=== PATIENT | female | born 1970 | race African-American/Black ===

== ENCOUNTER → 2016-10-23 | Outpatient (CLI) | payer OTHER ==
[~2016-10-23] MED LIST: ADDERALL20 MG PO; AMITRIPTYLINE H25 MG PO; BUSPAR15 M2 PO; CETIRIZINE HCL10 MG PO; CITALOPRAM HBR40 M1 PO; CLONAZEPAM0.5 MG PO; DOCUSATE SODIU100 MG PO; EDARBYCLOR 40-1 EAC1 PO; EFFEXOR75 M3 PO; FAMOTIDINE20 M1 PO; HYDROCHLOROTHIA25 MG PO; HYDROCODON-ACE1 EACH PO; IBUPROFEN400 MG PO; KLOR-CON PO; LAMOTRIGINE200 MG PO; LEVOTHYROXINE50 MCG PO; MULTIVITAMINS1 EAC3; NAPROXEN PO; NEURONTIN600 MG PO; OMEPRAZOLE40 M1 PO; QUETIAPINE FUM100 MG PO; ROPINIROLE HCL1 MG PO; SEROQUEL PO; TEGRETOL PO; TIZANIDINE HCL2 MG PO; TRAMADOL HCL50 M2 PO; VENLAFAXINE HCL75 M1 PO; VICODIN ES 7.51 EAC1 PO; VITAMIN C W/RO500 MG PO; VITAMIN D250000 UNIT PO
== END | disposition home or self-care (01) ==
LOC: CLAB 17:31
DX: T78.3XXA Angioneurotic edema, initial encounter (principal); L30.8 Other specified dermatitis; J30.0 Vasomotor rhinitis
CPT/HCPCS: 86352

== ENCOUNTER → 2016-12-11 | Day surgery (SDC) | payer OTHER ==
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
== END | disposition home or self-care (01) ==
LOC: CCSC 08:05
DX: M50.123 Cervical disc disorder at C6-C7 level with radiculopathy (principal); K21.9 Gastro-esophageal reflux disease without esophagitis; I10 Essential (primary) hypertension
CPT/HCPCS: J1040; J2250